=== PATIENT | male | born 1960 | race Two or more races ===

== ENCOUNTER 2023-12-26 08:45 | Outpatient (AMB) | payer MEDICARE, MEDICAID, SELFPAY ==
--- NOTE | 2023-12-26 09:06 | PD.ORTHCLVIS ---
Vital signs 12/26/23 09:07 Height 1.68 m Height Method Stated Weight 101.179 kg Weight Measurement Method Standing Scale BMI 35.8 BP 149/77 H Blood Pressure Source Automatic Cuff Blood Pressure Location Right Upper Arm Position Sitting Respiration 19 Pulse 73 Pulse Source Monitor Temp 97.2 F Temp Source Temporal Artery Scan Pulse Oximetry (%) 98 Oxygen Delivery Method Room Air Med/Allergies Allergies & Medications Allergies No Known Allergies Allergy (Verified 12/26/23 09:07) Medication Reconciliation diltiazem HCl 240 mg capsule,extended release 24 hr, controlled 240 mg PO BID 05/30/23 [History Confirmed 12/26/23] metformin 750 mg tablet,extended release 24 hr 750 mg PO BID 05/30/23 [History Confirmed 12/26/23] metoprolol tartrate 100 mg tablet 100 mg PO BID 05/30/23 [History Confirmed 12/26/23] rivaroxaban 20 mg tablet (Xarelto) 20 mg PO QPM 05/30/23 [History Confirmed 12/26/23] aspirin 325 mg tablet 325 mg PO HS 12/06/23 [History Confirmed 12/26/23] digoxin 125 mcg (0.125 mg) tablet 125 mcg PO QDAY 12/06/23 [History Confirmed 12/26/23] dulaglutide 3 mg/0.5 mL subcutaneous pen injector (Trulicity) 3 mg subcut QWEEK 12/06/23 [History Confirmed 12/26/23] acetaminophen 500 mg tablet (Acetaminophen Extra Strength) 1,000 mg (2 x 500 mg) PO Q6H PRN pain #90 tabs 12/11/23 [Rx Confirmed 12/26/23] doxycycline hyclate 100 mg tablet 100 mg PO BID #14 tabs 12/11/23 [Rx Confirmed 12/26/23] gabapentin 300 mg capsule 300 mg PO .qhs #30 caps 12/11/23 [Rx Confirmed 12/26/23] oxycodone 5 mg tablet 5 mg PO Q6H PRN pain #28 tabs 12/11/23 [Rx Confirmed 12/26/23] rivaroxaban 10 mg tablet (Xarelto) 10 mg PO QDAY #14 tabs 12/11/23 [Rx Confirmed 12/26/23] sennosides 8.6 mg-docusate sodium 50 mg tablet (Senna-S) 1 tab-cap PO QDAY #30 tabs 12/11/23 [Rx Confirmed 12/26/23] cyclobenzaprine 5 mg tablet 5 mg PO QHS PRN muscle spasm #30 tabs 12/26/23 [Rx] oxycodone 5 mg tablet 5 mg PO Q6H PRN pain #28 tabs 12/26/23 [Rx] Subjective Visit Visit for: follow up visit, post op #1 (2 WEEK) and knee (LEFT) Immunization / Flu Flu Vaccine in the Last 12 Months: Yes Flu Vaccine Exclusion Criteria: Already Received History of Present Illness Chief complaint: LEFT KNEE TKA 2 WEEK POST OP Adrien is a pleasant 63-year-old male with bilateral knee pain and arthritis. He is status post left total knee replacement 2 weeks ago. He is doing well. Personal History Red flag PMH: none Pain Pain level (0-10): 8 Pain duration: WITH MOVEMENT Pain location: inside (medial) Pain quality: aching Pain timing: increases with activity Associated signs & symptoms: stiffness Ambulatory data Ambulatory device: walker Treatments Improvement with previous injections: No Improvement with PT: No Improvement with NSAIDS: no Review of Systems Review of Systems: All systems negative unless otherwise noted in HPI. Exam Exam Patient is in no acute distress and is cooperative with the examination today. Patient has a normal mood and affect. Breathing is nonlabored. In no respiratory distress. Bilateral extremities were evaluated and demonstrates sensation intact to light touch. Palpable pedal pulses are present. No significant edema is present. Left knee incision is c/d/i Assessment and Plan Problem List (1) Status post total right knee replacement: Status: Acute Plan: Patient is a 63-year-old male with severe left knee arthritis. He is doing well s/p l tka. We will see him in 4 weeks for routine followup (2) Arthritis of left knee: Status: Acute Advanced Care Planning Discussion Advance care planning discussed with:: patient Office Procedures GNS Level of Care Nursing/Assessment Patient Status: Established Patient Nursing Assessment/Reassesment: Medication Reconciliation, Update PMH in EMR and Vital Signs Coordination of Care: Complex Care and Chronic Disease 1-5, Education Complex Pt/Fam, Consent,records obtained, informed consent, 1 Ins Authorization, Results/Orders obtained and Staff clarify orders Established Patient Charge Established Patient Point Assignment: 110 Established Patient Point Charge: EP Level 3 (80-115) Past Medical History Past Medical History Have you ever been diagnosed with any of the following: Neurological Problems Seizures: No Peripheral Neuropathy: No 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) Cardiology Problems Cardiac Arrhythmia: Yes Atrial Fibrillation: Yes Coronary Artery Disease: Yes Hypercholesterolemia: Yes Congestive Heart Failure: No Valvular Heart Disease: Yes Cardiomyopathy: Yes Hypertension: Yes Respiratory Problems Chronic Obstructive Pulmonary Disease (COPD): No Smoking: No Smoking Exposure: No Stomache/Intestinal Problems Cirrhosis: No Pancreatitis: No Celiac Disease: No Gall Bladder Disease: No Gastrointestinal Bleed: No Esophageal Varices: No Hernadez's Esophagus: No Colitis: No Ulcerative Colitis: No Diverticulitis: No Diverticulosis: No Ulcer: No Irritable Bowel: No Crohn's Disease: No Obstructive Bowel: No Hiatal Hernia: No Hemorrhoids: No Gastroesophageal Reflux Disease: No Obesity: Yes Genital/Urinary Problems Renal Disease: No Benign Prostatic Hyperplasia: Yes Musculoskeletal Problems Arthritis: Yes Head,Eye,Nose,Throat Problems Cataracts: Yes (right) Endocrine Problems Diabetes Mellitus Type 1: No Diabetes Mellitus Type 2: Yes Other Problems Hospitalization: Yes (heart issues) Shingles: Yes Blood Transfusions: No Blood Transfusion Reaction: No Anesthesia Reactions: No MRSA: No VRSA: No Vancomycin-Resistant Enterococci: No Chicken Pox: Yes Measles: Yes Cancer: No Surgical History Pacemaker: Yes
[2023-12-26 09:07] VITALS: BP 149/77; PULSE 73; RESP 19; TEMP 36.2; O2SAT 98; BMI 35.8
== END 2023-12-26 09:51 | disposition home or self-care (01) ==
PROVIDERS: PCP Family Medicine; Referring Provider Family Medicine; Supervising Provider Orthopaedic Surgery Adult Reconstructive Orthopaedic Surgery; Visit Provider Orthopaedic Surgery Adult Reconstructive Orthopaedic Surgery
DX: Z96.651 Presence of right artificial knee joint (principal); M17.12 Unilateral primary osteoarthritis, left knee; I10 Essential (primary) hypertension; E78.00 Pure hypercholesterolemia, unspecified; I48.91 Unspecified atrial fibrillation; I25.10 Atherosclerotic heart disease of native coronary artery without angina pectoris
CPT/HCPCS: 99213; G0463

== ENCOUNTER 2024-02-06 09:25 | Outpatient (AMB) | payer MEDICARE, MEDICAID, SELFPAY ==
[2024-02-06 10:17] VITALS: BP 109/74; PULSE 73; RESP 19; TEMP 36.3; O2SAT 97; BMI 37.3
--- NOTE | 2024-02-06 10:17 | ORTHONT_ITS ---
Vital signs 02/06/24 10:17 Height 1.68 m Height Method Stated Weight 105.404 kg Weight Measurement Method Standing Scale BMI 37.3 BP 109/74 Blood Pressure Source Automatic Cuff Blood Pressure Location Left Upper Arm Position Sitting Respiration 19 Pulse 73 Pulse Source Monitor Temp 97.4 F Temp Source Temporal Artery Scan Pulse Oximetry (%) 97 Oxygen Delivery Method Room Air Med/Allergies Allergies & Medications Allergies No Known Allergies Allergy (Verified 02/06/24 10:18) Medication Reconciliation diltiazem HCl 240 mg capsule,extended release 24 hr, controlled 240 mg PO BID 05/30/23 [History Confirmed 02/06/24] metformin 750 mg tablet,extended release 24 hr 750 mg PO BID 05/30/23 [History Confirmed 02/06/24] metoprolol tartrate 100 mg tablet 100 mg PO BID 05/30/23 [History Confirmed 02/06/24] rivaroxaban 20 mg tablet (Xarelto) 20 mg PO QPM 05/30/23 [History Confirmed 02/06/24] aspirin 325 mg tablet 325 mg PO HS 12/06/23 [History Confirmed 02/06/24] digoxin 125 mcg (0.125 mg) tablet 125 mcg PO QDAY 12/06/23 [History Confirmed 02/06/24] dulaglutide 3 mg/0.5 mL subcutaneous pen injector (Trulicity) 3 mg subcut QWEEK 12/06/23 [History Confirmed 02/06/24] acetaminophen 500 mg tablet (Acetaminophen Extra Strength) 1,000 mg (2 x 500 mg) PO Q6H PRN pain #90 tabs 12/11/23 [Rx Confirmed 02/06/24] doxycycline hyclate 100 mg tablet 100 mg PO BID #14 tabs 12/11/23 [Rx Confirmed 02/06/24] gabapentin 300 mg capsule 300 mg PO .qhs #30 caps 12/11/23 [Rx Confirmed 02/06/24] oxycodone 5 mg tablet 5 mg PO Q6H PRN pain #28 tabs 12/11/23 [Rx Confirmed 02/06/24] rivaroxaban 10 mg tablet (Xarelto) 10 mg PO QDAY #14 tabs 12/11/23 [Rx Confirmed 02/06/24] sennosides 8.6 mg-docusate sodium 50 mg tablet (Senna-S) 1 tab-cap PO QDAY #30 tabs 12/11/23 [Rx Confirmed 02/06/24] cyclobenzaprine 5 mg tablet 5 mg PO QHS PRN muscle spasm #30 tabs 12/26/23 [Rx Confirmed 02/06/24] oxycodone 5 mg tablet 5 mg PO Q6H PRN pain #28 tabs 12/26/23 [Rx Confirmed 02/06/24] Exam Exam Patient is in no acute distress and is cooperative with the examination today. Patient has a normal mood and affect. Breathing is nonlabored. In no respiratory distress. Bilateral extremities were evaluated and demonstrates sensation intact to light touch. Palpable pedal pulses are present. No significant edema is present. Left knee incision is c/d/i Assessment and Plan Problem List (1) Status post total right knee replacement: Status: Acute Plan: Patient is a 63-year-old male with severe left knee arthritis. He is doing well s/p l tka. We will see him in 6-8 weeks for routine followup We will see him back in two months. (2) Arthritis of left knee: Status: Acute Advanced Care Planning Discussion Advance care planning discussed with:: patient Office Procedures GNS Level of Care Nursing/Assessment Patient Status: Established Patient Nursing Assessment/Reassesment: Medication Reconciliation, Update PMH in EMR and Vital Signs Coordination of Care: Complex Care and Chronic Disease 1-5, Education Complex Pt/Fam, Consent,records obtained, informed consent, 1 Ins Authorization, Results/Orders obtained and Staff clarify orders Special Needs: Language special needs Established Patient Charge Established Patient Point Assignment: 110 Established Patient Point Charge: EP Level 3 (80-115) MA Intake Visit Data Collection New Patient or Established: Established Patient (seen at [facility] within 3 years) Reason for Visit:: TKA F.U Seen by Clinical Staff ONLY (RN/MA): No Collar Sewer Required: Yes PCP or OBGYN visit in last 3 months: Yes Hx Now: No Do You Feel Safe at Home: Yes Authorities Contacted: N/A Questionairres Past Medical History Past Medical History Have you ever been diagnosed with any of the following: Neurological Problems Seizures: No Peripheral Neuropathy: No 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) Cardiology Problems Cardiac Arrhythmia: Yes Atrial Fibrillation: Yes Coronary Artery Disease: Yes Hypercholesterolemia: Yes Congestive Heart Failure: No Valvular Heart Disease: Yes Cardiomyopathy: Yes Hypertension: Yes Respiratory Problems Chronic Obstructive Pulmonary Disease (COPD): No Smoking: No Smoking Exposure: No Stomache/Intestinal Problems Cirrhosis: No Pancreatitis: No Celiac Disease: No Gall Bladder Disease: No Gastrointestinal Bleed: No Esophageal Varices: No Hernadez's Esophagus: No Colitis: No Ulcerative Colitis: No Diverticulitis: No Diverticulosis: No Ulcer: No Irritable Bowel: No Crohn's Disease: No Obstructive Bowel: No Hiatal Hernia: No Hemorrhoids: No Gastroesophageal Reflux Disease: No Obesity: Yes Genital/Urinary Problems Renal Disease: No Benign Prostatic Hyperplasia: Yes Musculoskeletal Problems Arthritis: Yes Head,Eye,Nose,Throat Problems Cataracts: Yes (right) Endocrine Problems Diabetes Mellitus Type 1: No Diabetes Mellitus Type 2: Yes Other Problems Hospitalization: Yes (heart issues) Shingles: Yes Blood Transfusions: No Blood Transfusion Reaction: No Anesthesia Reactions: No MRSA: No VRSA: No Vancomycin-Resistant Enterococci: No Chicken Pox: Yes Measles: Yes Cancer: No Surgical History Pacemaker: Yes Subjective Visit Visit for: follow up visit and knee Immunization / Flu Flu Vaccine in the Last 12 Months: No Flu Vaccine Exclusion Criteria: No Exclusion Criteria History of Present Illness Chief complaint: s/p L TKA Adrien is a pleasant 63-year-old male with bilateral knee pain and arthritis. He is status post left total knee replacement 6 weeks ago. He is doing well. Pain Pain level (0-10): 6 Pain duration: ON AND OFF Pain location: inside (medial) Pain quality: dull and aching Pain timing: increases with activity Associated signs & symptoms: none Ambulatory data Ambulatory device: none Treatments Improvement with previous injections: No Improvement with PT: No Improvement with NSAIDS: no Review of Systems Review of Systems: All systems negative unless otherwise noted in HPI.
== END 2024-02-06 10:41 | disposition home or self-care (01) ==
LOC: HODSRG 09:25
PROVIDERS: PCP Family Medicine; Referring Provider Family Medicine; Supervising Provider Orthopaedic Surgery Adult Reconstructive Orthopaedic Surgery; Visit Provider Orthopaedic Surgery Adult Reconstructive Orthopaedic Surgery
DX: Z96.651 Presence of right artificial knee joint (principal); M17.12 Unilateral primary osteoarthritis, left knee; I10 Essential (primary) hypertension; I25.10 Atherosclerotic heart disease of native coronary artery without angina pectoris; I42.9 Cardiomyopathy, unspecified; I48.91 Unspecified atrial fibrillation
CPT/HCPCS: 99213; G0463

== ENCOUNTER 2024-04-05 10:20 | Outpatient (AMB) | payer MEDICARE, MEDICAID, SELFPAY ==
[2024-04-05 10:35] VITALS: BP 117/76; PULSE 76; RESP 18; TEMP 36.3; O2SAT 98; BMI 37.5
--- NOTE | 2024-04-05 10:35 | ORTHONT_ITS ---
Vital signs 04/05/24 10:35 Height 1.68 m Height Method Stated Weight 106.141 kg Weight Measurement Method Standing Scale BMI 37.5 BP 117/76 Blood Pressure Source Automatic Cuff Blood Pressure Location Right Upper Arm Position Sitting Respiration 18 Pulse 76 Pulse Source Monitor Temp 97.3 F Temp Source Temporal Artery Scan Pulse Oximetry (%) 98 Oxygen Delivery Method Room Air Med/Allergies Allergies & Medications Allergies No Known Allergies Allergy (Verified 04/05/24 10:35) Medication Reconciliation diltiazem HCl 240 mg capsule,extended release 24 hr, controlled 240 mg PO BID 05/30/23 [History Confirmed 04/05/24] metformin 750 mg tablet,extended release 24 hr 750 mg PO BID 05/30/23 [History Confirmed 04/05/24] metoprolol tartrate 100 mg tablet 100 mg PO BID 05/30/23 [History Confirmed 04/05/24] rivaroxaban 20 mg tablet (Xarelto) 20 mg PO QPM 05/30/23 [History Confirmed 04/05/24] aspirin 325 mg tablet 325 mg PO HS 12/06/23 [History Confirmed 04/05/24] digoxin 125 mcg (0.125 mg) tablet 125 mcg PO QDAY 12/06/23 [History Confirmed 04/05/24] dulaglutide 3 mg/0.5 mL subcutaneous pen injector (Trulicity) 3 mg subcut QWEEK 12/06/23 [History Confirmed 04/05/24] acetaminophen 500 mg tablet (Acetaminophen Extra Strength) 1,000 mg (2 x 500 mg) PO Q6H PRN pain #90 tabs 12/11/23 [Rx Confirmed 04/05/24] doxycycline hyclate 100 mg tablet 100 mg PO BID #14 tabs 12/11/23 [Rx Confirmed 04/05/24] gabapentin 300 mg capsule 300 mg PO .qhs #30 caps 12/11/23 [Rx Confirmed 04/05/24] rivaroxaban 10 mg tablet (Xarelto) 10 mg PO QDAY #14 tabs 12/11/23 [Rx Confirmed 04/05/24] cyclobenzaprine 5 mg tablet 5 mg PO QHS PRN muscle spasm #30 tabs 12/26/23 [Rx Confirmed 04/05/24] Exam Exam Patient is in no acute distress and is cooperative with the examination today. Patient has a normal mood and affect. Breathing is nonlabored. In no respiratory distress. Bilateral extremities were evaluated and demonstrates sensation intact to light touch. Palpable pedal pulses are present. No significant edema is present. Left knee incision is c/d/i. Range of motion is 0 to 100 Right knee incision is clean dry intact. Range of motion 0 to 105 degrees Assessment and Plan Problem List (1) Status post total right knee replacement: Status: Acute Plan: Patient is a 63-year-old male with severe left knee arthritis. He is doing well s/p l tka.He is 3 months out from a knee replacement. We will see him back in approximately 2 months to go over his x-ray results. He is doing well. (2) Arthritis of left knee: Status: Acute Advanced Care Planning Discussion Advance care planning discussed with:: patient Office Procedures GNS Level of Care Nursing/Assessment Patient Status: Established Patient Nursing Assessment/Reassesment: Medication Reconciliation, Update PMH in EMR and Vital Signs Coordination of Care: Complex Care and Chronic Disease 1-5, Education Complex Pt/Fam, Consent,records obtained, informed consent, Results/Orders obtained and Staff clarify orders Special Needs: Language special needs Established Patient Charge Established Patient Point Assignment: 95 Established Patient Point Charge: EP Level 3 (80-115) MA Intake Visit Data Collection New Patient or Established: Established Patient (seen at [facility] within 3 years) Reason for Visit:: FOLLOW S/P RIGHT & LEFT TKA Seen by Clinical Staff ONLY (RN/MA): No Verbal consent obtained for Telemed visit?: No Vp Cardiovascular Service Line Required: Yes PCP or OBGYN visit in last 3 months: Yes Hx Now: No Do You Feel Safe at Home: Yes Authorities Contacted: N/A Questionairres Past Medical History Past Medical History Have you ever been diagnosed with any of the following: Neurological Problems Seizures: No Peripheral Neuropathy: No 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) Cardiology Problems Cardiac Arrhythmia: Yes Atrial Fibrillation: Yes Coronary Artery Disease: Yes Hypercholesterolemia: Yes Congestive Heart Failure: No Valvular Heart Disease: Yes Cardiomyopathy: Yes Hypertension: Yes Respiratory Problems Chronic Obstructive Pulmonary Disease (COPD): No Smoking: No Smoking Exposure: No Stomache/Intestinal Problems Cirrhosis: No Pancreatitis: No Celiac Disease: No Gall Bladder Disease: No Gastrointestinal Bleed: No Esophageal Varices: No Hernadez's Esophagus: No Colitis: No Ulcerative Colitis: No Diverticulitis: No Diverticulosis: No Ulcer: No Irritable Bowel: No Crohn's Disease: No Obstructive Bowel: No Hiatal Hernia: No Hemorrhoids: No Gastroesophageal Reflux Disease: No Obesity: Yes Genital/Urinary Problems Renal Disease: No Benign Prostatic Hyperplasia: Yes Musculoskeletal Problems Arthritis: Yes Head,Eye,Nose,Throat Problems Cataracts: Yes (right) Endocrine Problems Diabetes Mellitus Type 1: No Diabetes Mellitus Type 2: Yes Other Problems Hospitalization: Yes (heart issues) Shingles: Yes Blood Transfusions: No Blood Transfusion Reaction: No Anesthesia Reactions: No MRSA: No VRSA: No Vancomycin-Resistant Enterococci: No Chicken Pox: Yes Measles: Yes Cancer: No Surgical History Pacemaker: Yes Subjective Visit Visit for: post op #3 and knee Immunization / Flu Flu Vaccine in the Last 12 Months: Yes Flu Vaccine Exclusion Criteria: No Exclusion Criteria History of Present Illness Chief complaint: S/P RIGHT & LEFT TKA Date of 1st surgery (if applicable): 12/2023 Adrien is a pleasant 63-year-old male status post left total knee replacement 3 and half months ago and right total knee replacement almost a year. The left knee is doing well. There is still some pain he reports. He is doing well overall Personal History Occupation: RETIRED Red flag PMH: Blood thinners and BMI BMI Counceling provided: Yes Pain Pain level (0-10): 4 Pain duration: COMES AND GOES Pain location: inside (medial), outside (lateral) and anterior Pain quality: sharp, dull and aching Pain timing: increases with activity Associated signs & symptoms: numbness Ambulatory data Ambulatory device: none Treatments Improvement with previous injections: No Improvement with PT: No Improvement with NSAIDS: no Review of Systems Review of Systems: All systems negative unless otherwise noted in HPI.
--- NOTE | 2024-04-05 10:51 | XR_ITS ---
Examination: Bilateral knees 2 views Right lateral knee left lateral knee 2 views Bilateral axial knees single view Technique: Bilateral AP knees standing single view, bilateral PA knees standing single view 30 degrees flexion Standing right lateral knee left lateral knee 2 views Bilateral axial knees single view total 5 views Exam date and time: April 05, 2024 1050 hrs. Indications: Bilateral knee replacement, right side one year ago left side December 2023 Findings: Moderate osteopenia Bilateral total knee arthroplasty. Satisfactory alignment. No loosening of the prosthetic components No patellar dislocation No fractures Impression: Bilateral total knee arthroplasties with satisfactory alignment
== END 2024-04-05 10:57 | disposition home or self-care (01) ==
LOC: HODSRG 10:20
PROVIDERS: PCP Family Medicine; Referring Provider Family Medicine; Supervising Provider Orthopaedic Surgery Adult Reconstructive Orthopaedic Surgery; Visit Provider Orthopaedic Surgery Adult Reconstructive Orthopaedic Surgery
DX: Z47.1 Aftercare following joint replacement surgery (principal); M17.12 Unilateral primary osteoarthritis, left knee; Z96.653 Presence of artificial knee joint, bilateral
CPT/HCPCS: 73564; 99213; G0463

== ENCOUNTER 2024-06-04 10:10 | Outpatient (AMB) | payer MEDICARE, MEDICAID, SELFPAY ==
[2024-06-04 10:28] VITALS: BP 132/77; PULSE 76; RESP 18; TEMP 36.6; O2SAT 98; BMI 38.2
--- NOTE | 2024-06-04 10:28 | PD.ORTHCLVIS ---
Vital signs 06/04/24 10:28 Height 1.68 m Height Method Stated Weight 108.097 kg Weight Measurement Method Standing Scale BMI 38.2 BP 132/77 H Blood Pressure Source Automatic Cuff Blood Pressure Location Right Upper Arm Position Sitting Respiration 18 Pulse 76 Pulse Source Monitor Temp 97.8 F Temp Source Temporal Artery Scan Pulse Oximetry (%) 98 Oxygen Delivery Method Room Air Med/Allergies Allergies & Medications Allergies No Known Allergies Allergy (Verified 06/04/24 10:29) Medication Reconciliation diltiazem HCl 240 mg capsule,extended release 24 hr, controlled 240 mg PO BID 05/30/23 [History Confirmed 06/04/24] metformin 750 mg tablet,extended release 24 hr 750 mg PO BID 05/30/23 [History Confirmed 06/04/24] metoprolol tartrate 100 mg tablet 100 mg PO BID 05/30/23 [History Confirmed 06/04/24] rivaroxaban 20 mg tablet (Xarelto) 20 mg PO QPM 05/30/23 [History Confirmed 06/04/24] aspirin 325 mg tablet 325 mg PO HS 12/06/23 [History Confirmed 06/04/24] digoxin 125 mcg (0.125 mg) tablet 125 mcg PO QDAY 12/06/23 [History Confirmed 06/04/24] dulaglutide 3 mg/0.5 mL subcutaneous pen injector (Trulicity) 3 mg subcut QWEEK 12/06/23 [History Confirmed 06/04/24] acetaminophen 500 mg tablet (Acetaminophen Extra Strength) 1,000 mg (2 x 500 mg) PO Q6H PRN pain #90 tabs 12/11/23 [Rx Confirmed 06/04/24] doxycycline hyclate 100 mg tablet 100 mg PO BID #14 tabs 12/11/23 [Rx Confirmed 06/04/24] gabapentin 300 mg capsule 300 mg PO .qhs #30 caps 12/11/23 [Rx Confirmed 06/04/24] rivaroxaban 10 mg tablet (Xarelto) 10 mg PO QDAY #14 tabs 12/11/23 [Rx Confirmed 06/04/24] cyclobenzaprine 5 mg tablet 5 mg PO QHS PRN muscle spasm #30 tabs 12/26/23 [Rx Confirmed 06/04/24] acetaminophen 500 mg tablet 500 mg PO Q6H PRN pain #90 tabs 06/04/24 [Rx] Exam Exam Patient is in no acute distress and is cooperative with the examination today. Patient has a normal mood and affect. Breathing is nonlabored. In no respiratory distress. Bilateral extremities were evaluated and demonstrates sensation intact to light touch. Palpable pedal pulses are present. No significant edema is present. Left knee incision is c/d/i. Range of motion is 0 to 100 Right knee incision is clean dry intact. Range of motion 0 to 105 degrees Patient is stable palpation over the lumbar spine. No significant deformity can be seen Assessment and Plan Problem List (1) Status post total right knee replacement: Status: Acute Plan: Patient is a 63-year-old male with severe left knee arthritis. He is doing well s/p l tka.He is 5 months out from a knee replacement. He returned back to work and noticed a lot of pain in his back. Will get new back and knee x-rays to see how they are doing. Will see him back after his x-rays (2) Arthritis of left knee: Status: Acute Advanced Care Planning Discussion Advance care planning discussed with:: patient Office Procedures GNS Level of Care Nursing/Assessment Patient Status: Established Patient Nursing Assessment/Reassesment: Medication Reconciliation, Update PMH in EMR and Vital Signs Coordination of Care: Complex Care and Chronic Disease 1-5, Education Complex Pt/Fam, Consent,records obtained, informed consent, Results/Orders obtained and Staff clarify orders Special Needs: Language special needs Established Patient Charge Established Patient Point Assignment: 95 Established Patient Point Charge: EP Level 3 (80-115) MA Intake Visit Data Collection New Patient or Established: Established Patient (seen at [facility] within 3 years) Reason for Visit:: follow up on tka Seen by Clinical Staff ONLY (RN/MA): No Verbal consent obtained for Telemed visit?: No Research Assistant Member Required: Yes PCP or OBGYN visit in last 3 months: Yes Hx Now: No Do You Feel Safe at Home: Yes Authorities Contacted: N/A Questionairres Past Medical History Past Medical History Have you ever been diagnosed with any of the following: Neurological Problems Seizures: No Peripheral Neuropathy: No 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) Cardiology Problems Cardiac Arrhythmia: Yes Atrial Fibrillation: Yes Coronary Artery Disease: Yes Hypercholesterolemia: Yes Congestive Heart Failure: No Valvular Heart Disease: Yes Cardiomyopathy: Yes Hypertension: Yes Respiratory Problems Chronic Obstructive Pulmonary Disease (COPD): No Smoking: No Smoking Exposure: No Stomache/Intestinal Problems Cirrhosis: No Pancreatitis: No Celiac Disease: No Gall Bladder Disease: No Gastrointestinal Bleed: No Esophageal Varices: No Hernadez's Esophagus: No Colitis: No Ulcerative Colitis: No Diverticulitis: No Diverticulosis: No Ulcer: No Irritable Bowel: No Crohn's Disease: No Obstructive Bowel: No Hiatal Hernia: No Hemorrhoids: No Gastroesophageal Reflux Disease: No Obesity: Yes Genital/Urinary Problems Renal Disease: No Benign Prostatic Hyperplasia: Yes Musculoskeletal Problems Arthritis: Yes Head,Eye,Nose,Throat Problems Cataracts: Yes (right) Endocrine Problems Diabetes Mellitus Type 1: No Diabetes Mellitus Type 2: Yes Other Problems Hospitalization: Yes (heart issues) Shingles: Yes Blood Transfusions: No Blood Transfusion Reaction: No Anesthesia Reactions: No MRSA: No VRSA: No Vancomycin-Resistant Enterococci: No Chicken Pox: Yes Measles: Yes Cancer: No Surgical History Pacemaker: Yes Subjective Visit Visit for: follow up visit Immunization / Flu Flu Vaccine in the Last 12 Months: No Flu Vaccine Exclusion Criteria: No Exclusion Criteria History of Present Illness Chief complaint: Back pain Adrien is status post bilateral total knee replacement and is over 3 months postop. He reports that he went back to work And he started noticing pain primarily in his back. He reports that there is mild knee pain as well. Personal History Occupation: field handyman Pain Pain level (0-10): 8 Pain duration: comes and goes Pain location: inside (medial) and anterior Pain quality: sharp, dull and aching Pain timing: increases with activity Ambulatory data Ambulatory device: none Treatments Improvement with previous injections: No Improvement with PT: No Improvement with NSAIDS: no Review of Systems Review of Systems: All systems negative unless otherwise noted in HPI.
--- NOTE | 2024-06-04 10:39 | XR_ITS ---
Examination: Bilateral knees 2 views Right lateral knee left lateral knee 2 views Bilateral axial knees single view TECHNIQUE: Bilateral AP knees standing single view, bilateral PA knees standing single view flexion Standing right lateral knee left lateral knee 2 views Bilateral axial knees single view Exam date and time: June 04, 2024 1049 hours INDICATIONS: Bilateral knee pain right knee replacement one year ago left knee replacement 5 months ago FINDINGS: Moderate osteopenia. Bilateral total knee arthroplasties. Satisfactory alignment. No fractures. No loosening of the prosthetic components No patellar dislocations Moderate thinning cartilage lateral patellofemoral articular surfaces IMPRESSION: Bilateral total knee arthroplasties with satisfactory alignment
--- NOTE | 2024-06-04 10:39 | XR_ITS ---
Examination: Lumbar spine 3 views Technique one AP lateral coned lateral lower lumbar spine 3 views Exam date and time: June 04, 2024 1057 hours INDICATIONS: Low back pain beginning 2 months ago FINDINGS: Adequate alignment lumbar vertebral bodies No lumbar fracture Advanced degenerative disc disease L5-S1 No spondylolisthesis IMPRESSION: Advanced degenerative disc disease L5-S1
== END 2024-06-04 10:47 | disposition home or self-care (01) ==
LOC: HODSRG 10:10
PROVIDERS: PCP Family Medicine; Referring Provider Family Medicine; Supervising Provider Orthopaedic Surgery Adult Reconstructive Orthopaedic Surgery; Visit Provider Orthopaedic Surgery Adult Reconstructive Orthopaedic Surgery
DX: Z96.651 Presence of right artificial knee joint (principal); M17.12 Unilateral primary osteoarthritis, left knee; M51.379 Other intervertebral disc degeneration, lumbosacral region without mention of lumbar back pain or lower extremity pain; I10 Essential (primary) hypertension; E78.00 Pure hypercholesterolemia, unspecified; I25.10 Atherosclerotic heart disease of native coronary artery without angina pectoris; I48.91 Unspecified atrial fibrillation
CPT/HCPCS: 72100; 73564; 99213; G0463

== ENCOUNTER 2024-06-20 13:54 | Outpatient (AMB) | payer MEDICARE, MEDICAID, SELFPAY ==
[2024-06-20 14:13] VITALS: BP 119/78; PULSE 78; RESP 18; TEMP 36.6; O2SAT 93; BMI 37.3
--- NOTE | 2024-06-20 14:13 | ORTHONT_ITS ---
Vital signs 06/20/24 14:13 Height 1.68 m Height Method Stated Weight 105.432 kg Weight Measurement Method Standing Scale BMI 37.3 BP 119/78 Blood Pressure Source Automatic Cuff Blood Pressure Location Left Upper Arm Position Sitting Respiration 18 Pulse 78 Pulse Source Monitor Temp 98 F Temp Source Temporal Artery Scan Pulse Oximetry (%) 93 L Oxygen Delivery Method Room Air Med/Allergies Allergies & Medications Allergies No Known Allergies Allergy (Verified 06/20/24 14:14) Medication Reconciliation diltiazem HCl 240 mg capsule,extended release 24 hr, controlled 240 mg PO BID 05/30/23 [History Confirmed 06/20/24] metformin 750 mg tablet,extended release 24 hr 750 mg PO BID 05/30/23 [History Confirmed 06/20/24] metoprolol tartrate 100 mg tablet 100 mg PO BID 05/30/23 [History Confirmed 06/20/24] rivaroxaban 20 mg tablet (Xarelto) 20 mg PO QPM 05/30/23 [History Confirmed 06/20/24] aspirin 325 mg tablet 325 mg PO HS 12/06/23 [History Confirmed 06/20/24] digoxin 125 mcg (0.125 mg) tablet 125 mcg PO QDAY 12/06/23 [History Confirmed 06/20/24] dulaglutide 3 mg/0.5 mL subcutaneous pen injector (Trulicity) 3 mg subcut QWEEK 12/06/23 [History Confirmed 06/20/24] doxycycline hyclate 100 mg tablet 100 mg PO BID #14 tabs 12/11/23 [Rx Confirmed 06/20/24] gabapentin 300 mg capsule 300 mg PO .qhs #30 caps 12/11/23 [Rx Confirmed 06/20/24] rivaroxaban 10 mg tablet (Xarelto) 10 mg PO QDAY #14 tabs 12/11/23 [Rx Confirmed 06/20/24] cyclobenzaprine 5 mg tablet 5 mg PO QHS PRN muscle spasm #30 tabs 12/26/23 [Rx Confirmed 06/20/24] acetaminophen 500 mg tablet 500 mg PO Q6H PRN pain #90 tabs 06/04/24 [Rx Confirmed 06/20/24] Exam Exam Patient is in no acute distress and is cooperative with the examination today. Patient has a normal mood and affect. Breathing is nonlabored. In no respiratory distress. Bilateral extremities were evaluated and demonstrates sensation intact to light touch. Palpable pedal pulses are present. No significant edema is present. Left knee incision is c/d/i. Range of motion is 0 to 100 Right knee incision is clean dry intact. Range of motion 0 to 105 degrees Patient is stable palpation over the lumbar spine. No significant deformity can be seen X-rays demonstrate degenerative disc disease at L5-S1 Assessment and Plan Problem List (1) Status post total right knee replacement: Status: Acute Plan: Patient is a 63-year-old male with severe left knee arthritis. He is doing well s/p l tka.He is 6 months out from a knee replacement. He returned back to work and noticed a lot of pain in his back. His spine films are abnormal. Will get an MRI as he has pain in his back that radiates down his left thigh. We will send him back after his MRI is done (2) Arthritis of left knee: Status: Acute Advanced Care Planning Discussion Advance care planning discussed with:: patient Office Procedures GNS Level of Care Nursing/Assessment Patient Status: Established Patient Nursing Assessment/Reassesment: Medication Reconciliation, Update PMH in EMR and Vital Signs Coordination of Care: Complex Care and Chronic Disease 1-5, Education Complex Pt/Fam, Consent,records obtained, informed consent, Results/Orders obtained and Staff clarify orders Special Needs: Language special needs Established Patient Charge Established Patient Point Assignment: 95 Established Patient Point Charge: EP Level 3 (80-115) MA Intake Visit Data Collection New Patient or Established: Established Patient (seen at [facility] within 3 years) Reason for Visit:: FOLLOW UP XRAY RESULTS Seen by Clinical Staff ONLY (RN/MA): No PCP or OBGYN visit in last 3 months: Yes Hx Now: No Do You Feel Safe at Home: Yes Authorities Contacted: N/A Questionairres Past Medical History Past Medical History Have you ever been diagnosed with any of the following: Neurological Problems Seizures: No Peripheral Neuropathy: No 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) Cardiology Problems Cardiac Arrhythmia: Yes Atrial Fibrillation: Yes Coronary Artery Disease: Yes Hypercholesterolemia: Yes Congestive Heart Failure: No Valvular Heart Disease: Yes Cardiomyopathy: Yes Hypertension: Yes Respiratory Problems Chronic Obstructive Pulmonary Disease (COPD): No Smoking: No Smoking Exposure: No Stomache/Intestinal Problems Cirrhosis: No Pancreatitis: No Celiac Disease: No Gall Bladder Disease: No Gastrointestinal Bleed: No Esophageal Varices: No Hernadez's Esophagus: No Colitis: No Ulcerative Colitis: No Diverticulitis: No Diverticulosis: No Ulcer: No Irritable Bowel: No Crohn's Disease: No Obstructive Bowel: No Hiatal Hernia: No Hemorrhoids: No Gastroesophageal Reflux Disease: No Obesity: Yes Genital/Urinary Problems Renal Disease: No Benign Prostatic Hyperplasia: Yes Musculoskeletal Problems Arthritis: Yes Head,Eye,Nose,Throat Problems Cataracts: Yes (right) Endocrine Problems Diabetes Mellitus Type 1: No Diabetes Mellitus Type 2: Yes Other Problems Hospitalization: Yes (heart issues) Shingles: Yes Blood Transfusions: No Blood Transfusion Reaction: No Anesthesia Reactions: No MRSA: No VRSA: No Vancomycin-Resistant Enterococci: No Chicken Pox: Yes Measles: Yes Cancer: No Surgical History Pacemaker: Yes Subjective Visit Visit for: follow up visit and x-rays (RESULTS) Immunization / Flu Flu Vaccine in the Last 12 Months: No Flu Vaccine Exclusion Criteria: No Exclusion Criteria History of Present Illness Chief complaint: Back pain Adrien is status post bilateral total knee replacement and is over 6 months postop. He reports that he went back to work And he started noticing pain primarily in his back. He reports that there is mild knee pain as well. Personal History Occupation: field radio technician Pain Pain level (0-10): 6 Pain duration: COMES AND GOES Pain location: inside (medial) and anterior Pain quality: sharp, dull and aching Pain timing: increases with activity Associated signs & symptoms: none Ambulatory data Ambulatory device: none Treatments Improvement with previous injections: No Improvement with PT: No Improvement with NSAIDS: no Review of Systems Review of Systems: All systems negative unless otherwise noted in HPI.
== END 2024-06-20 14:17 | disposition home or self-care (01) ==
LOC: HODSRG 13:54
PROVIDERS: PCP Family Medicine; Referring Provider Family Medicine; Supervising Provider Orthopaedic Surgery Adult Reconstructive Orthopaedic Surgery; Visit Provider Orthopaedic Surgery Adult Reconstructive Orthopaedic Surgery
DX: Z96.651 Presence of right artificial knee joint (principal); M17.12 Unilateral primary osteoarthritis, left knee; M54.9 Dorsalgia, unspecified; I48.91 Unspecified atrial fibrillation; I10 Essential (primary) hypertension; E78.00 Pure hypercholesterolemia, unspecified; I25.10 Atherosclerotic heart disease of native coronary artery without angina pectoris; E11.9 Type 2 diabetes mellitus without complications; Z95.0 Presence of cardiac pacemaker
CPT/HCPCS: 99213; G0463